=== PATIENT | male | born 1975 | race Caucasian/White ===

== ENCOUNTER 2024-04-01 07:32 | Day surgery (SDC) | payer MEDICAID ==
[~2024-04-01] VITALS: Ht 180.3 cm; Wt 79.4 kg
[2024-04-01] MEDS ORDERED: fentaNYL CITRATE/PF 100 MCG/2 ML AMP ONE ×2 (07:39→09:15)
[2024-04-01] MEDS ORDERED: MIDAZOLAM HCL 5 MG/5 ML VIAL ONE ×2 (07:39→09:15)
[2024-04-01 08:41] VITALS: O2SAT 98
[2024-04-01] MEDS ORDERED: DIPHENHYDRAMINE INJ 50 MG/ML VIAL ONE (09:03)
[2024-04-01] MEDS ORDERED: ONDANSETRON HCL 4 MG/2 ML VIAL ONE (09:04)
[2024-04-01 12:25] VITALS: BP_SYST 124; PULSE 73; RESP 17
== END 2024-04-01 10:45 | disposition home or self-care (01) ==
LOC: SDS 07:32 → SMU 07:37 → SDS 10:45
PROVIDERS: ATTEND Internal Medicine
DX: K59.00 Constipation, unspecified (principal); K29.30 Chronic superficial gastritis without bleeding; K63.5 Polyp of colon; K31.89 Other diseases of stomach and duodenum; K21.9 Gastro-esophageal reflux disease without esophagitis; K64.8 Other hemorrhoids; K62.5 Hemorrhage of anus and rectum; K44.9 Diaphragmatic hernia without obstruction or gangrene; E78.5 Hyperlipidemia, unspecified; F41.9 Anxiety disorder, unspecified; F32.A Depression, unspecified; Z98.890 Other specified postprocedural states; J45.909 Unspecified asthma, uncomplicated; D64.9 Anemia, unspecified; G47.30 Sleep apnea, unspecified; M79.7 Fibromyalgia; Z79.899 Other long term (current) drug therapy
CPT/HCPCS: 45380; 43239; 87081; 36415; 88305; 88312; 88313; 99152; G0378; J1200; J2250; J2405; J3010